=== PATIENT | female | born 1995 | race Two or more races ===

== ENCOUNTER 2017-08-08 01:20 | Emergency (ER) | payer OTHER, BC | END 2017-08-08 04:52 | disposition home or self-care (01) | LOC: ERS 01:20 | DX: S61.412A Laceration without foreign body of left hand, initial encounter (principal); W26.0XXA Contact with knife, initial encounter | CPT/HCPCS: 12001 ==

== ENCOUNTER 2017-10-04 00:08 | Emergency (ER) | payer OTHER, BC | END 2017-10-04 02:32 | disposition home or self-care (01) | LOC: ERS 00:08 | DX: R51 Headache (principal) | CPT/HCPCS: 99283 ==